=== PATIENT | male | born 1945 | race Caucasian/White ===

== ENCOUNTER → 2017-01-04 | Outpatient (CLI) | payer MEDICARE, OTHER ==
[~2017-01-04] MED LIST: ASCO500T8 PO; HYDR25TA6 PO; LISI-167 PO; LISI2.5T PO; MAGN100T6 PO; METO25TA2 PO; RIVA10TA PO; SELE200T10 PO; SIMV20TA3 PO; VITA1CAP PO
== END | disposition home or self-care (01) ==
LOC: CFH 12:28
PROVIDERS: ATTEND Nurse Practitioner Family
DX: I08.1 Rheumatic disorders of both mitral and tricuspid valves (principal)
CPT/HCPCS: 93306

== ENCOUNTER 2017-01-16 11:27 | Day surgery (SDC) | payer MEDICARE, OTHER ==
[2017-01-16] MEDS ORDERED: METO25TA91 PO (11:46)
[2017-01-16] MEDS ORDERED: DULA1.5P SC (11:46)
[2017-01-16] MEDS ORDERED: METF750T2 PO (11:46)
[2017-01-16] MEDS ORDERED: VITA10004 PO (11:46)
[2017-01-16] MEDS ORDERED: CHOL400C11 PO (11:46)
[2017-01-16] MEDS ORDERED: PROPOFOL 10 MG/ML, 20ML ONE (12:15)
[2017-01-16 12:38] LABS: ASPARTATE AMINO TRANSFERASE 21 U/L (15-37); BLOOD UREA NITROGEN 25 mg/dL (7-18)
[2017-01-16] MEDS ORDERED: SODIUM CHLORIDE FLUSH 10ML SYR IVF SCH (21:00)
== END 2017-01-16 13:38 | disposition home or self-care (01) ==
LOC: CACL 11:27
PROVIDERS: ATTEND Internal Medicine Cardiovascular Disease
DX: I48.0 Paroxysmal atrial fibrillation (principal); E78.2 Mixed hyperlipidemia; I10 Essential (primary) hypertension
CPT/HCPCS: 36415; 80053; 85025; 92960; C1764; J2704; 33282; 33284